=== PATIENT | female | born 1975 | race Caucasian/White ===

== ENCOUNTER → 2023-02-01 09:56 | Outpatient (CLI) | payer BC, SELFPAY ==
--- NOTE | ~2023-02-01 | XR_ITS ---
Right Shoulder Technique: AP and axillary views were obtained. Clinical History: Pain Findings: No fracture or dislocation is seen. Osseous alignment is anatomic. The glenohumeral and acr omioclavicular joint spaces are preserved. Soft tissues are unremarkable. Impression: Unremarkable right shoulder radiographs. Reviewed, dictated and finalized at [facility]. Impression: Unremarkable right shoulder radiographs.
== END ==
PROVIDERS: PCP Family Medicine; Visit Provider Nurse Practitioner Family
DX: M25.511 Pain in right shoulder (principal)
CPT/HCPCS: 73030

== ENCOUNTER 2023-03-31 10:21 | Outpatient (CLI) | payer BC, SELFPAY ==
--- NOTE | ~2023-03-31 | MR_ITS ---
EXAMINATION: MR shoulder RT wo con DATE: 03/31/2023 11:02 INDICATION: Unspecified injury of right shoulder and arm. Right shoulder pain. TECHNIQUE: Magnetic resonance imaging (MRI) of the right shoulder was performed without intravenous c ontrast. Sequences included axial PD-weighted FS FSE, coronal oblique PD-weighted FS FSE and T2-weigh elana FS FSE, and sagittal oblique T2-weighted FS FSE and T1-weighted FSE. COMPARISON: Right shoulder radiographs 02/01/2023 FINDINGS: Coracoacromial arch: The acromion undersurface is flat in morphology (type I). There is mild acromioclavicular joint osteo arthritis. Subacromial spurring is noted. There is mild subacromial/subdeltoid bursitis. Rotator cuff: There is a bursal sided partial-thickness tear of the junction of supraspinatus and infraspinatus ten dons measuring 8 mm anterior to posterior by 9 mm proximal to distal by 30% tendon thickness. Teres m inor tendon is normal. Subscapularis tendon is normal. Biceps tendon and glenoid labrum: Biceps tendon is in bicipital groove. Intra-articular biceps tendon is normal. The glenoid labrum is normal. Fluid: There is no glenohumeral joint effusion. Bones/cartilage: There is partial-thickness cartilage loss of glenoid involving the central articular surface. Humeral head cartilage is normal. IMPRESSION: 1. Bursal-sided, partial-thickness tear of supraspinatus and infraspinatus tendons. 2. Mild glenoid chondrosis. 3. Mild acromioclavicular joint osteoarthritis. 4. Mild subacromial/subdeltoid bursitis. Reviewed, dictated and finalized at [facility]. IMPRESSION: 1. Bursal-sided, partial-thickness tear of supraspinatus and infraspinatus tend ons. 2. Mild glenoid chondrosis. 3. Mild acromioclavicular joint osteoarthritis. 4. Mild subacromial/subdeltoid bursitis.
== END 2023-03-31 10:22 | disposition home or self-care (01) ==
PROVIDERS: PCP Family Medicine; Visit Provider Nurse Practitioner Family
DX: M75.111 Incomplete rotator cuff tear or rupture of right shoulder, not specified as traumatic (principal); M94.211 Chondromalacia, right shoulder; M19.011 Primary osteoarthritis, right shoulder; M75.51 Bursitis of right shoulder; S49.90XA Unspecified injury of shoulder and upper arm, unspecified arm, initial encounter
CPT/HCPCS: 73221